=== PATIENT | female | born 1950 | race African-American/Black ===

== ENCOUNTER 2018-02-25 15:26 | Emergency (ER) | payer MEDICARE, MEDICAID ==
[~2018-02-25] VITALS: Ht 165.1 cm; Wt 85.7 kg
[~2018-02-25 15:26] MED LIST: AMBIEN10 MG PO; BENADRYL25 MG ORAL; CYCLOBENZAPRINE10 MG ORAL; DIPHENHYDRAMINE25 M1; DOXYCYCLINE MO100 MG ORAL; ENALAPRIL MALEA20 MG PO; GABAPENTIN250 MG/5 M PO; GABAPENTIN300 MG ORAL; IBUPROFEN600 MG ORAL; METOPROLOL TART50 M1 ORAL; METOPROLOL TART50 MG PO; NAPROXEN500 M2 ORAL; NORCO 5-325 TA1 EACH ORAL; NORVASC5 MG PO; PANTOPRAZOLE SO40 MG PO; PEPCID20 MG ORAL; PREDNISONE20 MG ORAL; PROTONIX40 MG PO; RANITIDINE HCL150 MG ORAL; RANITIDINE HCL150 MG PO; SERTRALINE HCL25 MG ORAL; SERTRALINE HCL50 MG PO; TRAMADOL HCL50 MG ORAL; TRAZODONE HCL150 MG ORAL; TRIAMCINOLONE A60 M1 TP; VALIUM5 MG ORAL; VICODIN 5-5001 EACH PO
[2018-02-25 16:00] VITALS: BP 158/79
--- NOTE | 2018-02-25 16:04 | Emergency Room Report ---
History of Present Illness General Chief Complaint: Abdominal Pain Source: Patient, Medical Record Present Illness HPI Ms. Vera is 67 yo female who presents with epigastric "lump" and intermittent abdominal pain for the past 6 months since August. She has been evaluated by her primary physician outside hospital ER. She states when the lump is full she has vomiting and diarrhea. Abdominal surgeries include partial hysterectomy. No previous history of hernia. Symptoms currently mild. Allergies: Coded Allergies: FISH CONTAINING PRODUCTS (Unverified Allergy, Unknown, 02/25/18) IODINE (Verified Allergy, Unknown, 02/25/18) Uncoded Allergies: SEA FOOD (Allergy, Severe, Anaphylaxis, 03/06/12) SHRIMP (Allergy, Unknown, Anaphylaxis, 03/06/12) Patient History Past Medical History: see triage record, old chart reviewed Past Surgical History: hysterectomy, other - reviewed with patient Now: No Nursing Documentation-PMH Past Medical History: No History, Except For Hx Cardiac Problems: Yes Hx Hypertension: Yes Hx Cancer: Yes Hx Gastrointestinal Problems: Yes Hx Neurological Problems: No - HEP C Review of Systems Constitutional: Denies: fever, malaise Gastrointestinal: Reports: abdominal pain, constipation, diarrhea, nausea, vomiting All Other Systems: negative except mentioned in HPI Physical Exam Vital Signs Date Time Temp Pulse Resp B/P (MAP) Pulse Ox O2 Delivery O2 Flow Rate FiO2 02/25/18 15:28 98.0 86 16 158/79 95 Room Air 98.1 Sp02 EP Interpretation: reviewed, normal General Appearance: no apparent distress, alert, GCS 15, non-toxic, other - pleasant talkative articulate appears comfortable Head: normocephalic, atraumatic Eyes: bilateral eye normal inspection ENT: hearing grossly normal, normal pharynx, no angioedema, normal voice Neck: full range of motion, supple/symm/no masses Respiratory: chest non-tender, lungs clear, normal breath sounds, no rhonchi, no respiratory distress, no retraction, no accessory muscle use, no wheezing, speaking full sentences Cardiovascular #1: regular rate, rhythm, no edema, no gallop, no JVD, no murmur , no rub Gastrointestinal: normal bowel sounds, non tender, soft, non-distended, no guarding, no rebound, hernia - soft small 3 cm ventral hernia epigastric region reducible Musculoskeletal: back normal, gait/station normal, normal range of motion, non- tender, calf tenderness Neurologic: alert, oriented x3, responsive, motor strength/tone normal, sensory intact, speech normal Psychiatric: judgement/insight normal, memory normal, mood/affect normal, no suicidal/homicidal ideation Skin: normal color, no rash, warm/dry, well hydrated Medical Decision Making Diagnostic Impression: Primary Impression: Ventral hernia without obstruction or gangrene ER Course Ms. Vera has ventral hernia in epigastrium without incarceration or strangulation nor obstruction. rx: colace and referral to surgeon Last Vital Signs Date Time Temp Pulse Resp B/P (MAP) Pulse Ox O2 Delivery O2 Flow Rate FiO2 02/25/18 16:00 98.1 16 158/79 95 Room Air 98.1 02/25/18 15:28 86 Disposition: HOME, SELF-CARE Condition: Stable Dari Marrufo MD Feb 25, 2018 16:04
[2018-02-25] MEDS ORDERED: COLACE100 MG ORAL (16:05)
[2018-02-25 16:14] VITALS: BP 147/88
== END 2018-02-25 16:45 | disposition home or self-care (01) ==
LOC: EMR 16:33
DX: K43.9 Ventral hernia without obstruction or gangrene (principal); Z90.710 Acquired absence of both cervix and uterus
CPT/HCPCS: 99282

== ENCOUNTER 2018-08-14 13:18 | Emergency (ER) | payer MEDICARE, MEDICAID ==
[~2018-08-14] VITALS: Ht 165.1 cm; Wt 83.5 kg
[~2018-08-14 13:18] MED LIST changes: +COLACE100 MG ORAL
--- NOTE | 2018-08-14 13:26 | NUR ---
ED Nurse Note: Pt came into the Er w/ complaints of right sided neck pain and ear since . Rating the pain a 10/10 pain. A + O x4. Ambulatory. Skin warm to touch.
[2018-08-14 13:27] VITALS: BP 140/85
[2018-08-14] MEDS ORDERED: Dexamethasone 4mg/ml vial IM ONE (14:00)
[2018-08-14] MEDS ORDERED: Ketorolac 30mg Inj IM ONE (14:00)
[2018-08-14] MEDS ORDERED: Methocarbamol 750mg tab ORAL ONE (14:00)
--- NOTE | 2018-08-14 14:20 | Emergency Room Report ---
History of Present Illness General Chief Complaint: General Complaint Source: Medical Record Present Illness Allergies: Coded Allergies: FISH CONTAINING PRODUCTS (Unverified Allergy, Unknown, 02/25/18) IODINE (Verified Allergy, Unknown, 02/25/18) Uncoded Allergies: SEA FOOD (Allergy, Severe, Anaphylaxis, 03/06/12) SHRIMP (Allergy, Unknown, Anaphylaxis, 03/06/12) Patient History Past Medical History: see triage record Past Surgical History: none Pertinent Family History: none Now: No Reviewed Nursing Documentation: PMH: Agreed; PSxH: Agreed Nursing Documentation-PMH Past Medical History: No History, Except For Hx Cardiac Problems: Yes Hx Hypertension: Yes Hx Cancer: Yes Hx Gastrointestinal Problems: Yes Hx Neurological Problems: No - HEP C Review of Systems All Other Systems: negative except mentioned in HPI Physical Exam Vital Signs Date Time Temp Pulse Resp B/P (MAP) Pulse Ox O2 Delivery O2 Flow Rate FiO2 08/14/18 13:22 98.2 71 18 149/85 95 Room Air 08/14/18 13:27 98 Medical Decision Making Diagnostic Impression: Primary Impression: Exacerbation of chronic back pain Additional Impression: Sore throat Last Vital Signs Date Time Temp Pulse Resp B/P (MAP) Pulse Ox O2 Delivery O2 Flow Rate FiO2 08/14/18 13:27 98.2 65 18 140/85 95 Room Air 08/14/18 13:27 98 Disposition: HOME, SELF-CARE Condition: Stable Patient Instructions: Chronic Back Pain Additional Instructions: Take medications as directed. Follow up with a Primary Care Provider in 3-5 days, even if your symptoms have resolved. Recommend Thyroid evaluation and resources for pain management. --Please review list of primary care clinics, if you do not already have a primary care provider Return sooner to ED if new symptoms occur, or current symptoms become worse. - Please note that this Emergency Department Report was dictated using [employer] technology software, occasionally this can lead to erroneous entry secondary to interpretation by the dictation equipment. Lidya Lopez Aug 14, 2018 14:20
[2018-08-14] MEDS ORDERED: LIDODERM700 M1 TOPIC (14:23)
[2018-08-14] MEDS ORDERED: NAPROXEN500 M1 ORAL (14:23)
[2018-08-14] MEDS ORDERED: ROBAXIN-750750 MG PO (14:23)
[2018-08-14 14:31] VITALS: BP 135/80
--- NOTE | 2018-08-14 14:31 | NUR ---
ER DISCHARGE NOTE: Patient is cleared to be discharged per ERMD, pt is aox4, on room air, with stable vital signs. pt was given dc and prescription instructions, pt was able to verbalize understanding, pt id band removed without complications. pt is able to ambulate with steady gait. pt took all belongings.
== END 2018-08-14 14:32 | disposition home or self-care (01) ==
LOC: EMR 14:19
DX: M54.9 Dorsalgia, unspecified (principal); G89.29 Other chronic pain; J02.9 Acute pharyngitis, unspecified; I10 Essential (primary) hypertension; B19.20 Unspecified viral hepatitis C without hepatic coma
CPT/HCPCS: 96372; 99283; J1100; J1885